=== PATIENT | male | born 1975 | race Caucasian/White ===

== ENCOUNTER 2019-02-05 10:50 | Inpatient (IN) | payer MEDICAID ==
[~2019-02-05] VITALS: Ht 170.2 cm; Wt 71.8 kg
--- NOTE | ~2019-02-05 | HEMODYNAMI ---
PATIENT:CLARK SAUNDERS MEDICAL RECORD: [id number] : 73 [id number] ADMISSION DATE: 02/05/19 Generatedon:02/07/201910:34 Patient name: CLARK SAUNDERS Patient #: [id number] SSN: D OB: 1975 Date of study: 02/07/2019 Page: Of Hemodynamic Procedure Report Patient Data Patient Demographics Procedure consent was obtained First Name: CLARK Gender: Male Last Name: NICKY : 1975 [facility] Initial: R Age: 43 year(s) Patient #: [id number] Race: Unknown Additional ID: [id number] Contact details Address: [address] [place] [address] State: [place] City: [place] Zip code: [address] Past Medical History Allergies: No known allergies Admission Admission Data Admission Date: 02/05/2019 Admission Time: 12:24 Room #: D1206 Lab Results Lab Result Date: 02/07/2019 Lab Result Time: 0:00 Biochemistry Name Units Result Min Max BUN mg/dl 17 --(---*)-- 7 18 Creatinine mg/dl 1 --(--*-)-- 0.6 1.3 CBC Name Units Result Min Max Hematocrit % 43.1 --(*---)-- 42 54 Hemoglobin g/dl 14.8 --(-*--)-- 13.5 17.5 Procedure Procedure Types Cath Procedure Diagnostic Procedure LHC LHC w/Coronaries Procedure Description Procedure Date Procedure Date: 02/07/2019 Procedure Start Time: 10:22 Procedure End Time: 10:30 Procedure Staff Name Function Jaime Fajardo MD Performing Physician Armand Small RN Dry Mill Worker Romy Lee RT Monitor Michelet Peter RT Scrub Pedro Welch RN Nurse Procedure Data Cath Procedure Fluoroscopy Diagnostic fluoroscopy Total fluoroscopy Time: 1.9 time: 1.9 min min Diagnostic fluoroscopy Total fluoroscopy dose: dose: 99.38 mGy 99.38 mGy Contrast Material Contrast Material Type Amount (ml) Isovue 300 53 Entry Location Entry Primary Successful Side Size Upsize Upsize Entry Closure River ccessful Closure Location (Fr) 1 (Fr) 2 (Fr) Remarks Device Remarks Radial Right 6 Fr Mechanical artery Short Compression Estimated blood loss: 5 ml Diagnostic catheters Device Type Used For End Catheter Placement DIAGNOSTIC Cordell 110cm 5 Procedure Fr catheter ([id number]) Procedure Complications No complications Procedure Medications Medication Administration Route Dosage 0.9% NaCl I.V. 100 ml/hr Oxygen etCO2 Nasal cannula 2 l/min Heparin Flush Bag added to field 2 bags (1000units/500ml NS) Lidocaine 2% added to field 20 Radial Cocktail added to field 1 syringe (Verapomil 2mg/Nitro 400mcg/Heparin 1500units) Versed I.V. 2 mg Fentanyl I.V. 100 mcg Radial Cocktail I.A. 1 syringe (Verapomil 2mg/Nitro 400mcg/Heparin 1500units) Hemodynamics Rest HGB: 14.8 (g/dl) Heart Rate: 58 (bpm) Pressure Samples Time Site Value (mmHg) Purpose Heart Use Rate(bpm) 10:24 LV 97/5,10 Snapshot 68 10:25 AO 90/71(79) Pullback 70 10:25 LV 94/8,13 Pullback 70 Gradients Valve Time Site 1 Site 2 Mean SEP/DFP Peak To Heart Use (mmHg) (sec/min) Peak Rate (mmHg) (bpm) Aortic 10:25 LV AO 3 12 4 70 94/8,13 90/71(79) Calculations Valve P-P Mean Valve Index Valve Source Name Gradient Area Flow (cm2) Aortic 4 3 4 3 Snapshots Pre Cath Intra NCS Post Cath Vital Signs Time Heart Resp SPO2 etCO2 NIBP Rhythm Pain Sedation Rate (ipm) (%) (mmHg) (mmHg) Status Level (bpm) 10:12:54 60 10 96 0 119/83(93) NSR 0 (11) 10(A) , No pain 10:17:04 58 10 98 25.6 115/75(92) NSR 0 (11) 10(A) , No pain 10:21:18 59 15 98 45.9 121/69(88) NSR 0 (11) 10(A) , No pain 10:25:28 69 16 94 45.9 113/67(87) NSR 0 (11) 9(A) , No pain 10:29:38 68 17 94 44.4 109/64(84) NSR 0 (11) 9(A) , No pain Medications Time Medication Route Dose Verified Delivered Reason Notes Effectiveness by by 10:14:03 0.9% NaCl I.V. 100 Pedro Pedro Per ml/hr Yuri Welch physician RN RN 10:14:13 Oxygen etCO2 2 l/min Pedro Pedro for low 02 Nasal Lorigan Yuri sats cannula RN RN 10:14:27 Heparin Flush added 2 bags Pedro Pedro used for Bag to Lorigan Lorigan procedure (1000units/500ml field RN RN NS) 10:14:38 Lidocaine 2% added 20ml Pedro Pedro for local to vial Lorigan Lorigan anesthetic field RN RN 10:15:23 Radial Cocktail added 1 Pedro Pedro used for (Verapomil to syringe Lorigan Lorigan procedure 2mg/Nitro field RN RN 400mcg/Heparin 1500units) 10:18:27 Versed I.V. 2 mg Pedro Pedro for sedation Yuri Welch RN RN 10:18:34 Fentanyl I.V. 100 mcg Pedro Pedro for sedation Yuri Welch RN RN 10:23:43 Radial Cocktail I.A. 1 Pedro Jaime for (Verapomil syringe Lorigan Tana vasodilation 2mg/Nitro MENA GARCÍA 400mcg/Heparin 1500units) Procedure Log Time Note 9:26:47 Signed procedure consent form obtained from patient. 9:26:49 Diagnostic Cath status Elective 9:26:50 Time tracking: Regular hours (M-F 7:00 - 5:00) 9:26:54 Plan of Care:Hemodynamics will remain stable., Cardiac rhythm will remain stable., Comfort level will be maintained., Respiratory function will remain adequate., Patient/ family verbilizes understanding of procedure., Procedure tolerated without complication., Recovers from procedure without complications.. 9:27:14 Patient allergic to No known allergies 9:27:46 Lab Result : BUN 17 mg/dl 9::46 Lab Result : Creatinine 1 mg/dl 9::46 Lab Result : Hemoglobin 14.8 g/dl 9::46 Lab Result : Hematocrit 43.1 % 9:44:11 Michelet MADDEN(R) sent for patient. Start room use. 9:55:35 Patient received from Med II to CCL 3 Alert and oriented. Tansferred to table in Supine position. 9:55:36 Warm blankets applied, and yoseph hugger turned on for patient comfort. 9:55:37 Correct patient and procedure confirmed by team. 9:55:37 ECG and BP/O2 sat monitors applied to patient. 9:57:19 Pre-procedure instructions explained to patient. 9:57:19 Pre-op teaching completed and patient verbalized understanding. 9:57:22 Patient NPO since Midnight. 9:57:25 Is patient on blood thinner?No 9:57:27 Patient diabetic? No. 9:57:30 Previous problem with sedation/anesthesia? No ? 9:57:32 Snore? Yes 9:57:33 Sleep apnea? No 9:57:33 Deviated septum? No 9:57:34 Opens mouth fully? Yes 9:57:36 Sticks out tongue? Yes 9:57:39 Airway obstruction? No ? 9:57:46 Dentures? No LOST TEETH 10:11:54 Vital chart was started 10:11:55 Baseline sample Acquired. 10:11:58 Rhythm: sinus bradycardia 10:12:00 Full Disclosure recording started 10:12:17 Modified Eyal's test Ulnar < 7 seconds 10:12:20 Patient pain scale 0/10 ?. 10:12:31 IV started by Pedro Welch RN inright antecubital with a 20 gauge IV catheter with 0.9% NaCl at KVO. 10:12:34 Lab results completed and on chart. 10:12:48 Right Radial & Right Groin area was prepped with chlora-prep and draped in sterile fashion 10:14:03 0.9% NaCl 100 ml/hr I.V. was administered by Pedro Welch RN; Per physician; 10:14:13 Oxygen 2 l/min etCO2 Nasal cannula was administered by Pedro Welch RN; for low 02 sats; 10:14:27 Heparin Flush Bag (1000units/500ml NS) 2 bags added to field was administered by Pedro Welch RN; used for procedure; 10:14:38 Lidocaine 2% 20ml vial added to field was administered by Pedro Welch RN; for local anesthetic; 10:15:23 Radial Cocktail (Verapomil 2mg/Nitro 400mcg/Heparin 1500units) 1 syringe added to field was administered by Pedro Welch RN; used for procedure; 10:15:45 Alarms reviewed by R. N. 10:15:45 Sharps counted by scrub and verified by R.N. 10:15:48 Use device set Radial Dx or PCI 10:15:49 ACIST Syringe (18515) opened to sterile field. 10:15:50 Medline Cath Pack ([id number]) opened to sterile field. 10:15:51 ACIST Hand Control (85108) opened to sterile field. 10:15:51 ACIST Manifold (42971) opened to sterile field. 10:15:52 Bag Decanter (2002S) opened to sterile field. 10:15:53 Tegaderm 4 x 4 (1626W) opened to sterile field. 10:15:55 DIAGNOSTIC WIRE .035 260cm J wire (882661) opened to sterile field. 10:15:55 MBrace Wrist Support ([id number]) opened to sterile field. 10:15:57 SHEATH 6FR Slender (48-9990) opened to sterile field. 10:18:27 Versed 2 mg I.V. was administered by Pedro Welch RN; for sedation; 10:18:29 --------ALL STOP TIME OUT------ 10:18:30 Final Timeout: patient, procedure, and site verified with staff and physician. All members of the team are in agreement. 10:18:32 Right Radial & Right Groin site verified by team. 10:18:34 Fentanyl 100 mcg I.V. was administered by Pedro Wlech RN; for sedation; 10:18:36 Maximum allowable Isovue 300 dose 300ml. Physician notified. (300ml for normal creatinines. For patients with creatinine of 1.7 or higher multiply weight(kg) x 5 divided by creatinine.) 10:18:40 Fire Safety Assessment: A--An alcohol-based skin anteseptic being used preoperatively., C--Open oxygen or nitrous oxide is being used., D--An ESU, laser, or fiber-optic light is being used. 10:18:45 Physical assessment completed. ASA score P 2 - A patient with mild systemic disease as per Jaime Fajardo MD. 10:18:50 Sedation plan: IV Moderate Sedation Medication:Versed, Fentanyl 10:20:17 Zero performed for pressure channel P1 10::52 Procedure started. 10:22:30 Local anesthetic to right radial artery with Lidocaine 2% by Jaime Fajardo MD.INITIAL ACCESS ONLY 10:23:43 Radial Cocktail (Verapomil 2mg/Nitro 400mcg/Heparin 1500units) 1 syringe I.A. was administered by Jaime Fajardo MD; for vasodilation; 10:24:15 A 6 Fr Short sheath was inserted into the Right Radial artery 10:24:32 A DIAGNOSTIC Cordell 110cm 5 Fr catheter ([id number]) was advanced over the wire and used for Procedure. 10:24:37 LV gram done using STEWART 10::40 Injector settings: Ml/sec: 7, Volume: 15, 10:25:02 LV hemodynamics recorded. 10:25:15 EF : 55 % 10:26:48 LCA angiography performed. 10:27:31 RCA angiography performed. 10:27:48 Catheter removed. 10:27:50 TR BAND Standard ([id number]) opened to sterile field. 10:28:13 Procedure ended.(Physican Out) 10:28:24 Sheath removed intact; hemostasis achieved with Mechanical Compression to the Right Radial artery. 10:28:42 Fluoroscopy time 01.90 minutes. 10:28:53 Fluoroscopy dose: 99.38 mGy 10:28:53 Flurop Dose total: 99.38 10:28:57 Contrast amount:Isovue 300 53ml. 10:28:59 Sharps counted by scrub and verified by R.N. 10:29:03 TR band inflated with 10cc of air. 10:29:06 Post-procedure physical assessment completed. ASA score P 2 - A patient with mild systemic disease as per Jaime Fajardo MD. 10:29:15 Post procedure rhythm: sinus rhythm 10::17 Estimated blood loss: 5 ml 10:29:19 Post procedure instruction explained to patient.Patient verbalizes understanding. 10:29:19 Patient needs reinforcement of post procedure teaching. 10:30:20 Procedure and supply charges have been captured, reviewed, submitted and are correct. 10:30:22 Procedure Complication : No complications 10:30:24 Vital chart was stopped 10::25 See physician's report for complete and final results. 10:30:27 Report given to Med II. 10:30:29 Patient transfered to Med II with Bed. 10:30:31 Procedure ended. 10:30:31 Full Disclosure recording stopped 10:30:35 End room use (Document Last) Device Usage Item Name Manufacture Quantity Catalog Hospital Part Current Minimal Lot# / Number Charge Number Stock Stock Serial# Code ACIST Acist 1 64518 [id number] 617933 [id number] 20 Syringe Medical (63411) Systems Inc Medline Medline 1 [id number] 814154 22636 527978 5 Cath Pack ([id number]) ACIST Hand Acist 1 51457 523323 550142 818634 5 Control Medical (71441) Systems Inc ACIST Acist 1 62434 365417 174230 541601 5 Manifold Medical (55719) Systems Inc Bag Microtek 1 2002S 749303 79773 900590 5 Decanter Medical Inc. (2001S) Tegaderm 4 3M 1 1626W 461414 229452 402802 5 x 4 (1626W) DIAGNOSTIC St Delon 1 357894 885202 800662 251644 30 WIRE .035 260cm J wire (780158) MBrace Advanced 1 140-0250-00 455978 83577 094780 5 Wrist Vascular Support Dynamics ([id number]) SHEATH 6FR Terumo 1 [id number] 222264 789439 339427 5 Slender (80-1060) DIAGNOSTIC Terumo 1 40-5013 149834 204956 496541 5 Cordell 110cm 5 Fr catheter (156035) TR BAND Terumo 1 [id number] 146318 226477 549988 40 Standard ([id number]) Signature Audit Pol[place] Stage Time Signature Unsigned Intra-Procedure 02/07/2019 Romy Lee 10:34:21 AM RT(R) Signatures Monitor : Romy Lee Signature : RT Date : Time : [place] [id number] [place] [address]
[2019-02-05] MEDS ORDERED: CELEXA10 MG (10:54)
[2019-02-05] MEDS ORDERED: LITHIUM CI8 MEQ/5 ML (10:54)
[2019-02-05 11:10] LABS: BASOPHILS 0.6 % (0-2); EOSINOPHILS 4.5 % (0-7); HEMATOCRIT 40.8 % (42.0-54.0); HEMOGLOBIN 14.3 g/dL (13.5-17.5); IMMATURE GRANULOCYTES 0.2 % (0-5); LYMPHOCYTES 42.2 % (15-50); MCH 31.5 pg (26.0-34.0); MCV 89.9 fL (80.0-100.0); MEAN PLATELET VOLUME 8.5 fL (7.4-10.4); MONOCYTES 7.2 % (2-11); NEUTROPHILS 45.3 % (40-80); PLATELET COUNT 241 10x3/uL (130-400); RBC 4.54 10x6/uL (4.20-6.10); RDW 12.8 % (11.5-14.5); WBC 6.7 10x3/uL (4.8-10.8)
--- NOTE | 2019-02-05 11:19 | NUR ---
PT IN WITH C/O CHEST PAIN THAT STARTED LAST NIGHT, HAS GOTTEN WORSE THIS MORNING, DENIES PAIN RADIATING. EMS GAVE, NITRO X 1 AND ASA 324MG. PT IS ON THE MONITOR, STATES PAIN IS 5/10, STATES THAT NITRO DID NOT HELP WITH HIS PAIN. STATES HE HAS A LONG HISTORY OF METH USE, BUT HASN'T DONE IN 3 WEEKS.
[2019-02-05 11:22] LABS: ALBUMIN 3.9 g/dL (3.4-5.0); ALKALINE PHOSPHATASE 58 U/L (46-116); ALT (SGPT) 22 U/L (10-68); BILIRUBIN - TOTAL 0.44 mg/dL (0.2-1.3); CALC OSMOLALITY 275 mosm/kg (275-300); CALCIUM 9.1 mg/dL (8.5-10.1); CARBON DIOXIDE 30.4 mmol/L (21.0-32.0); CHLORIDE - SERUM 101 mmol/L (98-107); GLUCOSE 97 mg/dL (74-106); POTASSIUM - SERUM 4.3 mmol/L (3.5-5.1); PROTEIN - SERUM 7.7 g/dL (6.4-8.2); SODIUM 137 mmol/L (136-145); UREA NITROGEN 19 mg/dL (7-18); eGFR NON AFRICAN AMERICAN 86 mL/min (90-120)
[2019-02-05 11:34] LABS: CKMB 0.9 U/L (0.0-3.6); CREATINE KINASE 125 UL (21-232); MAGNESIUM - SERUM 2.1 mg/dL (1.8-2.4)
[2019-02-05 11:38] LABS: TROPONIN-I < 0.017 ng/mL (0.000-0.060)
[2019-02-05 12:18] LABS: APPEARANCE CLEAR (CLEAR); BILIRUBIN NEGATIVE (NEGATIVE); COLOR YELLOW (YELLOW); GLUCOSE NEGATIVE (NEGATIVE); KETONE NEGATIVE (NEGATIVE); NITRITE NEGATIVE (NEGATIVE); PROTEIN NEGATIVE (NEGATIVE); SPECIFIC GRAVITY 1.015 (1.005-1.020); UROBILINOGEN NORMAL (NORMAL)
[2019-02-05 12:23] LABS: UDS - AMPHET NEGATIVE QUAL (NEGATIVE); UDS - BARB NEGATIVE QUAL (NEGATIVE); UDS - BENZO NEGATIVE QUAL (NEGATIVE); UDS - COCAINE NEGATIVE QUAL (NEGATIVE); UDS - OPIATE NEGATIVE QUAL (NEGATIVE); UDS - PCP NEGATIVE QUAL (NEGATIVE); UDS - THC NEGATIVE QUAL (NEGATIVE)
--- NOTE | 2019-02-05 12:46 | NUR ---
Blood cultures drawn prior to administration of ant
[2019-02-05 12:47] VITALS: BP 108/79
[2019-02-05 13:10] VITALS: BP 118/76
--- NOTE | 2019-02-05 13:43 | NUR ---
APPLICATION DEFENSE MANAGER CALLED AT 1323. 1343 APPLICATION DEFENSE MANAGER CALLED AND SAID THEY WERE ON THERE WAY.
--- NOTE | 2019-02-05 14:05 | NUR ---
PT BROUGHT BACK TO THE ER AND PLACED BACK IN ROOM 12. 1206 DIRTY UPON PATIENT ARRIVAL TO THE ROOM, TECH BACK PATIENT BACK. CHARGE NURSE CALLED ENGINEERING LIBRARIAN TO ENSURE ROOM WILL BE CLEANED.
--- NOTE | 2019-02-05 14:46 | NUR ---
ROOM IS READY PATIENT TRANSPORTED VIA W/C PER TECH.
--- NOTE | 2019-02-05 14:52 | NUR ---
PT ARRIVED TO UNIT VIA WC. ALERT AND ORIENTED. LEFT AC IV INFUSING ABX AT 100. TELEMETRY ORDERED. PT HAS NO FURTHER NEEDS AT THIS TIME. BED LOW. CL IN REACH.
[2019-02-05] MEDS ORDERED: BENZTROPINE MESY2 MG PO (15:09)
[2019-02-05] MEDS ORDERED: LITHIUM CARBON300 MG PO ×2 (15:09→15:10)
[2019-02-05] MEDS ORDERED: CELEXA20 MG PO (15:10)
[2019-02-05] MEDS ORDERED: LEVOFLOXACIN500 MG PO (15:11)
[2019-02-05] MEDS ORDERED: HALDOL ORA30 MG/15 M PO (15:11)
[2019-02-05 15:17] VITALS: BP 112/77
--- NOTE | 2019-02-05 15:42 | NUR ---
SPOKE WITH KEN GARCIA AND SHE STATES SHE WILL ADDRESS PT'S HOME MEDS.
[2019-02-05 15:59] VITALS: BP 112/77; Ht 170.2 cm; Wt 71.8 kg
[2019-02-05 17:40] LABS: CKMB 1.1 U/L (0.0-3.6); CREATINE KINASE 132 UL (21-232)
[2019-02-05 17:41] LABS: TROPONIN-I < 0.017 ng/mL (0.000-0.060)
--- NOTE | 2019-02-05 17:52 | NUR ---
PT RUNNING 68 SINUS RHYTHM ON THE MONITOR.
[2019-02-05 20:22] VITALS: BP 106/70
--- NOTE | 2019-02-05 20:45 | NUR ---
PT PM SCHEDULE MEDS GIVEN ORDERED. CALL LIGHT IN REACH.
[2019-02-05 23:05] LABS: CREATINE KINASE 99 UL (21-232); TROPONIN-I < 0.017 ng/mL (0.000-0.060)
--- NOTE | 2019-02-05 23:47 | NUR ---
LAYING LEFT SIDE, RESP EVEN, NO DISTRESS. CALL LIGHT IN REACH.
[2019-02-06 00:23] VITALS: BP 104/72
--- NOTE | 2019-02-06 01:12 | NUR ---
GET UP IN BED, PT REQUESTED FOR ICE WATER, ICE WATER GIVEN. CALL LIGHT IN REACH.
--- NOTE | 2019-02-06 03:42 | NUR ---
I have reviewed this patient and I concur with the Shift Assessment completed by the Licensed Practical Nurse today this shift.
[2019-02-06 05:16] VITALS: BP 110/74
--- NOTE | 2019-02-06 05:16 | NUR ---
REST IN BED, CALL LIGHT IN REACH.
[2019-02-06 06:31] LABS: BASOPHILS 0.7 % (0-2); EOSINOPHILS 6.2 % (0-7); HEMATOCRIT 41.6 % (42.0-54.0); HEMOGLOBIN 14.3 g/dL (13.5-17.5); IMMATURE GRANULOCYTES 0.1 % (0-5); LYMPHOCYTES 41.7 % (15-50); MCH 31.4 pg (26.0-34.0); MCHC 34.4 g/dL (31.0-37.0); MCV 91.2 fL (80.0-100.0); MEAN PLATELET VOLUME 8.8 fL (7.4-10.4); MONOCYTES 7.9 % (2-11); NEUTROPHILS 43.4 % (40-80); PLATELET COUNT 253 10x3/uL (130-400); RBC 4.56 10x6/uL (4.20-6.10); WBC 7.1 10x3/uL (4.8-10.8)
[2019-02-06 07:43] LABS: ALBUMIN 3.6 g/dL (3.4-5.0); ALKALINE PHOSPHATASE 43 U/L (46-116); ALT (SGPT) 25 U/L (10-68); BILIRUBIN - TOTAL 0.54 mg/dL (0.2-1.3); CALC OSMOLALITY 276 mosm/kg (275-300); CALCIUM 8.4 mg/dL (8.5-10.1); CARBON DIOXIDE 28.5 mmol/L (21.0-32.0); CHLORIDE - SERUM 104 mmol/L (98-107); CREATININE - SERUM 0.9 mg/dL (0.6-1.3); GLUCOSE 87 mg/dL (74-106); POTASSIUM - SERUM 4.5 mmol/L (3.5-5.1); PROTEIN - SERUM 6.7 g/dL (6.4-8.2); SODIUM 138 mmol/L (136-145); UREA NITROGEN 19 mg/dL (7-18); eGFR NON AFRICAN AMERICAN > 90 mL/min (90-120)
[2019-02-06 08:59] VITALS: BP 110/75
--- NOTE | 2019-02-06 10:19 | NUR ---
PT TAKING SHOWER BY SELF.
[2019-02-06 12:00] VITALS: BP 151/82
--- NOTE | 2019-02-06 14:43 | NUR ---
PT SITTING UP IN BED. ALERT AND ORIENTED. PT HAS NO FURTHER NEEDS AT THIS TIME. BED LOW. CL IN REACH.
[2019-02-06 17:38] VITALS: BP 119/72
--- NOTE | 2019-02-06 17:51 | NUR ---
AGREE WITH ROOM SERVICE CLERK'S ASSESSMENT. PT RESTING COMFORTABLY IN BED, CALL LIGHT IN REACH, RESP EVEN AND NONLABORED, NAD NOTED.
--- NOTE | 2019-02-06 19:07 | NUR ---
PT IN BED. PROVIDED CRACKERS PER REQUEST. EXPLAINED TO PT THAT HE WOULD BE NPO AFTER MIDNIGHT TONIGHT.
--- NOTE | 2019-02-06 20:32 | NUR ---
ATTEMPTED TO DRAW ZACK FROM [employer], BUT IT WAS NOT AVAILABLE. CALLED SPIRAL GEAR GENERATOR. AWAITING DELIVERY OF MEDICATION.
[2019-02-06 23:31] VITALS: BP 103/64
--- NOTE | 2019-02-07 02:13 | CN ---
PATIENT NAME:CLARK SAUNDERS MEDICAL RECORD: [id number] : 73 LOCATION:D. D.1206 ADMIT DATE: 02/05/19 ACCOUNT: [id number] CONSULTING PHYSICIAN: CORBY CARVAJAL MD REFERRING PHYSICIAN: PATRICIO LAURA MD DATE OF CONSULTATION: 02/06/2019 HISTORY OF PRESENT ILLNESS: A 43-year-old gentleman with a family history of coronary artery disease, history of previous meth abuse, although has not done any in 5 weeks, has been having intermittent chest tightness and pressure with exertion as well as cardiomyopathic type symptomatology with nocturnal cough. More recently he has noted symptoms with minimal exertion. He presented to the ER, found to have a right lower lobe infiltrate as well. PAST MEDICAL HISTORY: Includes; 1. History of bipolar disorder. 2. Anxiety. 3. Depression. MEDICATIONS: Haldol 10 at bedtime; Celexa 20 mg p.o. every day; lithium 600 at bedtime and 300 every morning; Cogentin 2 mg p.o. every day. ALLERGIES: None known. SOCIAL HISTORY: He had quit meth 5 weeks ago as described above. Still smokes about a pack a day. REVIEW OF SYSTEMS: The patient reports easy bruising but reports no swollen glands. The patient reports no fever, no night sweats, no significant weight gain, no significant weight loss. No significant exercise tolerance. The patient reports no dry eyes, no irritation, no vision change. Patient reports no difficulty hearing and no ear pain. Patient reports no frequent nose bleeds or nose and sinus problems. Patient reports on arm pain on exertion. No shortness of breath while lying down. No history of heart murmur. Patient reports no cough, no wheezing or coughing up blood. Patient reports no abdominal pain, no vomiting. Normal appetite. No diarrhea and not vomiting blood. No nausea and no constipation. Patient reports no incontinence. No difficulty urinating. No hematuria. No increased frequency. Patient reports no muscle aches. No weakness, no arthralgias, no back pain. No swelling of the extremities. Patient reports no abnormal mole, no jaundice, no rashes. Reports no loss of consciousness. No weakness and no numbness. No seizures, dizziness, or headaches. The patient reports no depression, no sleep disturbance, feeling safe in a relationship and no alcohol abuse. Patient reports on fatigue. Reports no runny nose or sinus pressure. No itching, no hives, and no frequent sneezing. PHYSICAL EXAMINATION: GENERAL: Pleasant gentleman in no acute distress, communicative. Normal speech pattern. VITAL SIGNS: Blood pressure 110/75, pulse 65 and regular. HEENT: Normocephalic, atraumatic. NECK: No JVD or bruit. HEART: Regular. LUNGS: Lung butterfield are clear. ABDOMEN: Soft, nontender. CONSULT REPORT [id number] CALRK SAUNDERS EXTREMITIES: Pulse 2+ with no edema. IMPRESSION: Exertional angina. Also concern for myopathic process given his symptomatology and previous meth abuse. PLAN: For angiography, intervention based on the above. TRANSINT:[id number] Voice Confirmation ID: [id number] DOCUMENT ID: [id number] CORBY CARVAJAL MD at 0213 CC: [id number] DICTATION DATE: 02/06/19 1229 RECOVERY SPECIALIST: 02/06/19 1331 ADM IN [place] [id number] [place] [id number]
--- NOTE | 2019-02-07 05:01 | NUR ---
I have reviewed this patient and I concur with the Shift Assessment completed by the Licensed Practical Nurse today this shift.
[2019-02-07 06:13] VITALS: BP 114/79
[2019-02-07 06:50] LABS: BASOPHILS 0.7 % (0-2); HEMATOCRIT 43.1 % (42.0-54.0); HEMOGLOBIN 14.8 g/dL (13.5-17.5); IMMATURE GRANULOCYTES 0.1 % (0-5); LYMPHOCYTES 38.7 % (15-50); MCH 31.3 pg (26.0-34.0); MCHC 34.3 g/dL (31.0-37.0); MCV 91.1 fL (80.0-100.0); MEAN PLATELET VOLUME 8.9 fL (7.4-10.4); MONOCYTES 8.3 % (2-11); NEUTROPHILS 46.2 % (40-80); PLATELET COUNT 266 10x3/uL (130-400); RBC 4.73 10x6/uL (4.20-6.10); RDW 13.1 % (11.5-14.5); WBC 6.7 10x3/uL (4.8-10.8)
[2019-02-07 07:17] LABS: ALBUMIN 3.8 g/dL (3.4-5.0); ALKALINE PHOSPHATASE 47 U/L (46-116); ALT (SGPT) 22 U/L (10-68); BILIRUBIN - TOTAL 0.44 mg/dL (0.2-1.3); CALC OSMOLALITY 279 mosm/kg (275-300); CALCIUM 8.7 mg/dL (8.5-10.1); CARBON DIOXIDE 29.5 mmol/L (21.0-32.0); CHLORIDE - SERUM 101 mmol/L (98-107); GLUCOSE 90 mg/dL (74-106); PROTEIN - SERUM 7.3 g/dL (6.4-8.2); SODIUM 139 mmol/L (136-145); UREA NITROGEN 17 mg/dL (7-18); eGFR NON AFRICAN AMERICAN 86 mL/min (90-120)
[2019-02-07 08:30] VITALS: BP 119/81
--- NOTE | 2019-02-07 11:02 | NUR ---
RECEIVED PT FROM COMMERCIAL ESCROW ASSISTANT. PT IS RESTING AT THE MOMENT. RR EVEN AND UNLABORED ON RA. RIGHT RADIAL SITE IS C/D/I WITH NO S/S OF HEMATOMA PRESENT. TR BAND IN PLACE @10ML OF AIR. PERIPHERAL PULSES EVEN AND BILATERAL. NO S/S OF DISTRESS NOTED. WILL CTM.
--- NOTE | 2019-02-07 11:56 | OP ---
PATIENT NAME: CLARK SAUNDERS MEDICAL RECORD: [id number] :[birth year] LOCATION:D.M2 D.2127 ADMISSION DATE:02/05/19 SURGEON: CORBY CARVAJAL MD DATE OF OPERATION: 02/07/2019 PROCEDURE: Left heart catheterization, selective coronary angiography, right radial approach. CATHETERS: Radial sheath, Pinon catheter. The procedure was well tolerated. The patient was returned to [place]den. Sheath removed. TR band was placed. FINDINGS: Left ventriculography in 30-degree STEWART view, normal wall motion, normal systolic function. CORONARY ANATOMY: LEFT MAIN: Left main is free of disease. LAD: Free of disease in the diagonal system. CIRCUMFLEX: Free of disease in the marginal system. RIGHT CORONARY ARTERY: Dominant artery, gives rise to PDA, free of disease. IMPRESSION: Normal LV systolic function, normal coronary anatomy. TRANSINT:[id number] Voice Confirmation ID: [id number] DOCUMENT ID: [id number] CORBY CARVAJAL MD at 1156 CC: [id number] DICTATION DATE: 02/07/19 1041 WATER WELL DRILLER: 02/07/19 1153 ADM IN [facility] [address] [place] [address]
[2019-02-07 12:02] VITALS: BP 97/64
--- NOTE | 2019-02-07 12:22 | NUR ---
REMOVED HALF AIR FROM TR BAND. NO BLEEDING PRESENT. WILL CTM.
--- NOTE | 2019-02-07 15:30 | NUR ---
I have reviewed this patient and I concur with the Shift Assessment completed by the Licensed Practical Nurse today this shift.
[2019-02-07 15:31] VITALS: BP 100/65
--- NOTE | 2019-02-07 17:04 | NUR ---
RIGHT RADIAL CATH SITE IS C/D/I WITH NO S/S OF HEMATOMA PRESENT. TR BAND REMOVED AND BANDAID PLACED OVER SITE. PT IS AAO AND DENIES ANY NEEDS AT THIS TIME. WILL CTM.
--- NOTE | 2019-02-07 19:30 | NUR ---
RECEIVED REPORT, WILL ASSUME CARE OF PT, I FLUSHED IV AND SL, PT DENIES ANY NEEDS, BED IS LOW, SRX2, CALL LIGHT IN REACH, WILL CONTINUE PLAN OF CARE
[2019-02-07 19:55] VITALS: BP 104/63
[2019-02-07 23:55] VITALS: BP 108/71
[2019-02-08 03:50] VITALS: BP 107/74
[2019-02-08 05:41] LABS: ALBUMIN 3.5 g/dL (3.4-5.0); ALKALINE PHOSPHATASE 49 U/L (46-116); ALT (SGPT) 20 U/L (10-68); BILIRUBIN - TOTAL 0.42 mg/dL (0.2-1.3); CALC OSMOLALITY 277 mosm/kg (275-300); CALCIUM 8.5 mg/dL (8.5-10.1); CARBON DIOXIDE 27.7 mmol/L (21.0-32.0); CHLORIDE - SERUM 104 mmol/L (98-107); GLUCOSE 89 mg/dL (74-106); POTASSIUM - SERUM 3.9 mmol/L (3.5-5.1); PROTEIN - SERUM 7.1 g/dL (6.4-8.2); SODIUM 138 mmol/L (136-145); eGFR NON AFRICAN AMERICAN 86 mL/min (90-120)
[2019-02-08 05:53] LABS: UREA NITROGEN 22 mg/dL (7-18)
[2019-02-08 06:57] LABS: BASOPHILS 0.4 % (0-2); EOSINOPHILS 5.8 % (0-7); HEMATOCRIT 41.8 % (42.0-54.0); HEMOGLOBIN 14.3 g/dL (13.5-17.5); IMMATURE GRANULOCYTES 0.3 % (0-5); LYMPHOCYTES 35.6 % (15-50); MCH 31.2 pg (26.0-34.0); MCHC 34.2 g/dL (31.0-37.0); MCV 91.1 fL (80.0-100.0); MEAN PLATELET VOLUME 9.1 fL (7.4-10.4); MONOCYTES 5.7 % (2-11); NEUTROPHILS 52.2 % (40-80); PLATELET COUNT 262 10x3/uL (130-400); RBC 4.59 10x6/uL (4.20-6.10); RDW 13.1 % (11.5-14.5); WBC 7.7 10x3/uL (4.8-10.8)
[2019-02-08 08:41] VITALS: BP 113/76
--- NOTE | 2019-02-08 16:22 | MORECARE ---
CASE MANAGEMENT DISCHARGE SUMMARY PATIENT: CLARK SAUNDERS UNIT: [id number] ADM DATE: 02/05/19 AGE: 43 : [birth year] SEX: M ROOM/BED: D.3119 AUTHOR: NANI,DOC PHYSICIAN: REFERRING PHYSICIAN: PATRICIO LAURA MD DATE OF SERVICE: 02/08/19 Discharge Plan Patient Name: CLARK SAUNDERS Facility: [facility]:[place] : 1975 Planned Disposition: Home Anticipated Discharge Date: 02/08/19 Discharge Date: Expected LOS: 3 Initial Reviewer: [email or web address] Initial Review Date: 02/08/2019 Generated: 02/08/19 5:22 pm Comments DCP- Discharge Planning Updated by [email or web address]: Adrián Blanco on 02/08/19 3:[address] Patient Name: CLARK SAUNDERS Admission Status: ER Accout number: [id number] Admission Date: 02-05-2019 : 1975 Admission Diagnosis: Attending: PATRICIO LAURA Current LOS: 3 Anticipated DC Date: 02-08-2019 Planned Disposition: Home Primary Insurance: MEDICAID [place] Discharge Planning Comments: CM MET WITH PT IN ROOM TO DISCUSS DISCHARGE PLANNING AND NEEDS. PT REPORTS LIVING ON THE [place]REETS OF [place] AND REPORTS BEING HOMELESS. PT HAS BEEN STAYING AT THE [facility]. PT IS AWARE THAT IS THE ONLY SENIOR LIVING IN [place]. PT DOES NOT WANT TO GO TO [place] FOR SENIOR LIVING PLACEMENT. PT REPORTS HE IS FROM [place] AND WILL STAY HERE. PT HAS BEEN TO [facility] FOR DRUG ADDICTION AND WAS KICKED OUT FOR "BEING AN ASS TO SOMEONE OR SOMETHING." PT HAS CONTACTED OTHER AREA DRUG REHABS SUCH [facility] BUT HE HAS TO HAVE $300 [place] TO GET IN. PT REPORTS USING AND BEING FAMILIAR WITH ALL CHARITABLE ORGANIZATIONS IN [place] AND GETS MEAL ASSISTANCE FROM [employer] AND [employer]. PT REPORTS LOCAL CHURCHES WILL NOT HELP HIM AT ALL. PT HAS NO MEDICAL EQUIPMENT AND NO OUTSIDE SERVICES ASSISTING HIM OTHER THAN THE SENIOR LIVING. CM DISCUSSED AVAILABILITY OF HOME HEALTH, REHAB SERVICES AND MEDICAL EQUIPMENT. PT DENIES DISCHARGE NEEDS, REPORTS HE IS WALKING TO THE SENIOR LIVING AT DISCHARGE. CM PROVIDED PT A BUS PASS AND INFORMATION TO [facility] PT DOES NOT HAVE PRIMARY CARE DOCTOR. PT ASKED TO STAY IN THE HOSPITAL ONE MORE NIGHT, CM EXPLAINED THAT PT IS MEDICALLY STABLE FOR DISCHARGE, HAS BEEN DISCHARGED BY THE DOCTOR AND PT CAN GO TO THE HOMELESS SENIOR LIVING OR ANY OTHER PLACE HE WANTS BUT WILL NOT BE ABLE TO STAY IN THE HOSPITAL TONIGHT. PT ASKED TO BE DISCHARGE NOW, CM NOTIFIED BENCH PATTERNMAKER METAL NURSE AND BEDSIDE NURSE OF PT'S REQUEST. Pilot Fuel Engineer: Adrián Blanco DCPIA - Discharge Planning Initial Assessment Updated by [email or web address]: Adrián Blanco on 02/08/19 4:11 pm * Is the patient Alert and Oriented? Yes * How many steps to enter\\exit or inside your home? NONE * PCP NONE REFERRED TO [facility] * Pharmacy [facility] [place] * Preadmission Environment Homeless * Other Environment STAYING AT [facility] * Facility Name [facility] * ADLs Independent * Equipment None * Other Equipment NO MEDICAL EQUIPMENT PROVIDER PREFERENCE * List name and contact numbers for known caregivers / representatives who currently or will assist patient after discharge: DASHA SAUNDERS, BROTHER, * Verbal permission to speak to the caregivers and representatives has been obtained from the patient. N/A * Community resources currently utilized None * Please name any agencies selected above. NONE * Additional services required to return to the preadmission environment? No * Can the patient safely return to the preadmission environment? Yes * Has this patient been hospitalized within the prior 30 days at any hospital? No Patient Name: CLARK SAUNDERS Page [id number] at 1622 All edits/amendments must be made on the electronic document DICTATION DATE: 02/08/191621 AGRICULTURAL REAL ESTATE AGENT: REJI 02/08/19 162 RPT#: [id number] ME DATE: STATUS: ADM IN [facility] [address] [place] [address] END OF REPORT
== END 2019-02-08 16:36 | disposition home or self-care (01) | DRG 193 ==
LOC: D.ER 10:50 → D.M3 12:24 → D.EDHOLD 12:24 → D.M3 12:53 → D.M2 02-07 10:41
PROVIDERS: Emergency Medicine; Internal Medicine Interventional Cardiology; ADMIT Emergency Medicine; ATTEND Emergency Medicine
PROC: B2151ZZ Fluoroscopy of Left Heart using Low Osmolar Contrast (ICD-10-PCS; 2019-02-07)
PROC: 4A023N7 Measurement of Cardiac Sampling and Pressure, Left Heart, Percutaneous Approach (ICD-10-PCS; 2019-02-07)
PROC: B2111ZZ Fluoroscopy of Multiple Coronary Arteries using Low Osmolar Contrast (ICD-10-PCS; principal; 2019-02-07 09:44)
DX: J18.9 Pneumonia, unspecified organism (principal); J96.01 Acute respiratory failure with hypoxia; F17.213 Nicotine dependence, cigarettes, with withdrawal; D64.9 Anemia, unspecified; F31.9 Bipolar disorder, unspecified; F41.9 Anxiety disorder, unspecified; F15.10 Other stimulant abuse, uncomplicated

== ENCOUNTER 2019-03-09 12:25 | Emergency (ER) | payer MEDICAID ==
[~2019-03-09] VITALS: Ht 170.2 cm; Wt 68.2 kg
[~2019-03-09 12:25] MED LIST: BENZTROPINE MESY2 MG PO; CELEXA10 MG; CELEXA20 MG PO; HALDOL ORA30 MG/15 M PO; LEVOFLOXACIN500 MG PO; LITHIUM CARBON300 MG PO; LITHIUM CI8 MEQ/5 ML
[2019-03-09 13:13] VITALS: BP 119/87; Ht 170.2 cm; Wt 68.2 kg
== END 2019-03-09 15:04 | disposition left against medical advice (07) ==
LOC: D.ER 12:25
DX: M54.2 Cervicalgia (principal)

== ENCOUNTER 2019-03-23 02:53 | Emergency (ER) | payer MEDICAID ==
[~2019-03-23] VITALS: Ht 170.2 cm; Wt 68.2 kg
[2019-03-23 02:56] VITALS: Ht 170.2 cm; Wt 68.2 kg
[2019-03-23] MEDS ORDERED: STERAPRED DS 1010 MG PO (05:08)
[2019-03-23] MEDS ORDERED: NAPROSYN500 MG PO (05:08)
[2019-03-23 05:15] VITALS: BP 117/87
== END 2019-03-23 05:15 | disposition home or self-care (01) ==
LOC: D.ER 02:53
DX: M54.2 Cervicalgia (principal)

== ENCOUNTER 2019-04-06 22:36 | Emergency (ER) | payer MEDICAID ==
[~2019-04-06] VITALS: Ht 170.2 cm; Wt 58.6 kg
[~2019-04-06 22:36] MED LIST changes: +NAPROSYN500 MG PO; +STERAPRED DS 1010 MG PO
[2019-04-06 22:57] VITALS: Ht 170.2 cm; Wt 58.6 kg
[2019-04-06 23:09] VITALS: BP 123/65
== END 2019-04-06 23:10 | disposition home or self-care (01) ==
LOC: D.ER 22:36
DX: F91.9 Conduct disorder, unspecified (principal); F19.10 Other psychoactive substance abuse, uncomplicated

== ENCOUNTER 2019-07-13 10:01 | Emergency (ER) | payer MEDICAID ==
[~2019-07-13] VITALS: Ht 170.2 cm; Wt 52.3 kg
[2019-07-13 10:03] VITALS: Ht 170.2 cm; Wt 52.3 kg
[2019-07-13] MEDS ORDERED: BACTRIM 400-801 TAB PO (10:48)
[2019-07-13] MEDS ORDERED: NAPROSYN500 MG PO (10:48)
[2019-07-13 10:57] VITALS: BP 100/62
== END 2019-07-13 11:03 | disposition home or self-care (01) ==
LOC: D.ER 10:01
DX: L03.116 Cellulitis of left lower limb (principal); L03.115 Cellulitis of right lower limb

== ENCOUNTER 2019-08-15 17:48 | Emergency (ER) | payer MEDICAID ==
[~2019-08-15] VITALS: Ht 170.2 cm; Wt 68.2 kg
[~2019-08-15 17:48] MED LIST changes: +BACTRIM 400-801 TAB PO
[2019-08-15 17:56] VITALS: Ht 170.2 cm; Wt 68.2 kg
[2019-08-15 18:16] LABS: APPEARANCE CLEAR (CLEAR); BILIRUBIN NEGATIVE (NEGATIVE); COLOR YELLOW (YELLOW); GLUCOSE NEGATIVE (NEGATIVE); KETONE NEGATIVE (NEGATIVE); NITRITE NEGATIVE (NEGATIVE); PROTEIN TRACE mg/dL (NEGATIVE); SPECIFIC GRAVITY 1.015 (1.005-1.020); UROBILINOGEN NORMAL (NORMAL)
[2019-08-15 18:19] LABS: BASOPHILS 0.3 % (0-2); EOSINOPHILS 1.3 % (0-7); HEMATOCRIT 38.7 % (42.0-54.0); HEMOGLOBIN 13.3 g/dL (13.5-17.5); IMMATURE GRANULOCYTES 0.3 % (0-5); LYMPHOCYTES 10.3 % (15-50); MCH 31.2 pg (26.0-34.0); MCHC 34.4 g/dL (31.0-37.0); MCV 90.8 fL (80.0-100.0); MEAN PLATELET VOLUME 9.1 fL (7.4-10.4); MONOCYTES 6.9 % (2-11); NEUTROPHILS 80.9 % (40-80); PLATELET COUNT 238 10x3/uL (130-400); RBC 4.26 10x6/uL (4.20-6.10); RDW 12.7 % (11.5-14.5)
[2019-08-15 18:30] LABS: ALBUMIN 4.2 g/dL (3.4-5.0); ALKALINE PHOSPHATASE 58 U/L (46-116); ALT (SGPT) 55 U/L (10-68); BILIRUBIN - TOTAL 0.83 mg/dL (0.2-1.3); CALC OSMOLALITY 266 mosm/kg (275-300); CALCIUM 8.8 mg/dL (8.5-10.1); CARBON DIOXIDE 24.5 mmol/L (21.0-32.0); CHLORIDE - SERUM 98 mmol/L (98-107); CREATININE - SERUM 1.3 mg/dL (0.6-1.3); GLUCOSE 109 mg/dL (74-106); PROTEIN - SERUM 7.4 g/dL (6.4-8.2); SODIUM 132 mmol/L (136-145); UREA NITROGEN 15 mg/dL (7-18); eGFR NON AFRICAN AMERICAN 63 mL/min (90-120)
[2019-08-15 18:34] LABS: AMYLASE - SERUM 63 U/L (25-115); LIPASE 85 U/L (73-393)
[2019-08-15 18:38] LABS: TROPONIN-I < 0.017 ng/mL (0.000-0.060)
--- NOTE | 2019-08-15 19:53 | NUR ---
PSYCHIATRIST NOTIFIED AND SITTER ORDERED. SITTER AT BEDSIDE. NOTIFIED CHARGE NURSE AND ATTENDING IN REGARDS TO ASSESSMENT FINDINGS. RESOURCES GIVEN TO PT AND SAFETY PLAN INITIATED.
[2019-08-15 20:58] LABS: MAGNESIUM - SERUM 1.7 mg/dL (1.8-2.4)
[2019-08-15 21:44] LABS: UDS - AMPHET NEGATIVE QUAL (NEGATIVE); UDS - BARB NEGATIVE QUAL (NEGATIVE); UDS - BENZO NEGATIVE QUAL (NEGATIVE); UDS - COCAINE NEGATIVE QUAL (NEGATIVE); UDS - OPIATE NEGATIVE QUAL (NEGATIVE); UDS - PCP NEGATIVE QUAL (NEGATIVE); UDS - THC NEGATIVE QUAL (NEGATIVE)
[2019-08-15 22:29] LABS: CKMB 0.8 U/L (0.0-3.6); CREATINE KINASE 69 UL (21-232); TROPONIN-I < 0.017 ng/mL (0.000-0.060)
[2019-08-16 01:00] VITALS: BP 110/88
== END 2019-08-16 01:00 | disposition short-term general hospital (02) ==
LOC: D.ER 17:48
PROVIDERS: Family Medicine
DX: R07.9 Chest pain, unspecified (principal); M79.642 Pain in left hand; M79.641 Pain in right hand; X30.XXXA Exposure to excessive natural heat, initial encounter; R45.851 Suicidal ideations; Z86.73 Personal history of transient ischemic attack (TIA), and cerebral infarction without residual deficits; F20.9 Schizophrenia, unspecified

== ENCOUNTER 2019-11-11 16:19 | Emergency (ER) | payer MEDICAID ==
[~2019-11-11] VITALS: Ht 170.2 cm; Wt 68.2 kg
[2019-11-11 16:21] VITALS: BP 137/86; Ht 170.2 cm; Wt 68.2 kg
[2019-11-11] MEDS ORDERED: HALDOL ORA30 MG/15 M PO (16:24)
== END 2019-11-11 18:20 | disposition home or self-care (01) ==
LOC: D.ER 16:19
DX: G24.9 Dystonia, unspecified (principal); F20.9 Schizophrenia, unspecified